=== PATIENT | male | born 1995 | race Caucasian/White ===

== ENCOUNTER 2021-08-09 12:28 | Emergency (ER) | payer BC ==
--- NOTE | 2021-08-09 13:18 | PCM.EKG ---
#1 Interpretation EKG Date: 08/09/21 Time: 12:42 Rhythm: NSR Rate (Beats/Min): 84 [place]: Normal P-Wave: Present QRS: Normal ST-T: Normal QT: Normal Comparison: NA - No Prior EKG EKG Interpretation Comments: Sinus Rhythm with nonspecific T wave inversion
[2021-08-09] MEDS ORDERED: Sodium Chloride 0.9% 10 ML Syringe FLUSH PRN (14:17)
[2021-08-09] MEDS ORDERED: Sodium Chloride 0.9% 2.5 ML Syringe FLUSH PRN (14:17)
--- NOTE | 2021-08-09 15:20 | CR ---
HISTORY: Syncope COMPARISON: None available FINDINGS: A portable erect AP view of the chest was obtained at 14 50 hours. There are mild left greater than right patchy perihilar infiltrates, without vascular engorgement. The findings are suspicious for an atypical pneumonia such as COVID-19. There is no sign of any pleural effusion. The heart is normal in size. The mediastinum is normal in appearance. The osseous structures are normal in appearance for the patient`s age. IMPRESSION: Mild patchy bilateral perihilar infiltrates, left greater than right. Findings suggest an atypical pneumonia such as COVID-19. Dictated by Bruce Walters MD @ 08/09/2021 3:18:27 PM (Electronically Signed)
[2021-08-09 15:59] LABS: BLOOD UREA NITROGEN,BUN 14 mg/dL (7.0-18.0); CARBON DIOXIDE,CO2 30.7 mmol/L (21.0-32.0); CHLORIDE,CL 101 mmol/L (98-107); GLUCOSE RANDOM 118 mg/dL (74-106); POTASSIUM,K 4.5 mmol/L (3.5-5.1); SODIUM,NA 138 mmol/L (136-148)
[2021-08-09] MEDS ORDERED: Lactated Ringers 1,000 ML IV SCH (16:15)
[2021-08-09] MEDS ORDERED: Iopamidol 755 MG/ML 500 ML Multipack Bottle IVPUSH STA (16:48)
--- NOTE | 2021-08-09 17:07 | CT ---
INDICATION: Syncope, COVID positive TECHNIQUE: CT chest pulmonary PE protocol acquired with IV contrast. COMPARISON: None FINDINGS: Cardiovascular structures: Normal vascular enhancement of the pulmonary arteries, no sign of pulmonary embolism. Heart size is normal. No sign of aneurysm in the thoracic aorta. Mediastinum and chinedu: No mass. There are shotty mediastinal lymph nodes. Lungs: Scattered areas of bilateral airspace opacities. Pleura and pericardium: No effusions. Chest wall and axilla: No mass or adenopathy. Upper abdomen: Simple cysts in both kidneys. 9 mm right renal calcification. Bones: No significant findings. IMPRESSION: No pulmonary embolism. Bilateral airspace opacities. The appearance is slightly atypical for COVID, although COVID or bacterial infection remain the leading considerations. Nonobstructive right nephrolithiasis. Please note that all CT scans at this facility use dose modulation, iterative reconstruction, and/or weight-based dosing when appropriate to reduce radiation dose to as low as reasonably achievable. Dictated by Zunilda Hartmann MD @ 08/09/2021 5:05:37 PM (Electronically Signed)
--- NOTE | 2021-08-09 18:47 | EDM.PDOC ---
ED HPI GENERAL MEDICAL PROBLEM - General Chief Complaint: Cardiovascular Problem Stated Complaint: FAINTING AND COV POS Time Seen by Provider: 08/09/21 14:52 - History of Present Illness INITIAL COMMENTS - FREE TEXT/NARRATIVE: CHIEF COMPLAINT(S): Seizure HISTORY OF PRESENT ILLNESS: This is a 26-year-old man with a recent diagnosis of COVID-19 5 days ago who comes to the emergency department with a chief complaint of seizure. The patient states that he has seizure prior to arrival. He states that he was dizzy when he stood up and grabbed something but he states that he felt dizzy. He states that his vision went fuzzy and the next thing he woke up on the floor. He states that he remembers waking up on the ground does not remember anything else. He denies any history of CAD, CHF, COPD, asthma, recent travel, recent surgery, prior history of DVT or PE. He denies any sudden onset at young age and family or early onset CAD. He states that his brother stated that he got stiff in his eye looked strange. He states that he did not bite his tongue, P on himself and was not confused upon awakening. He states that he has had no headache but has not had an appetite and has not been eating as much because of Covid. He denies any chest pain or shortness of breath REVIEW OF SYSTEMS: Constitutional: Denies fever, chills. Eyes: Denies eye pain Ears, Nose, Mouth, & Throat: Denies earache Cardiovascular: Positive for syncopal episode. Denies chest pain Respiratory: Denies shortness of breath Gastrointestinal: Positive for anorexia. Denies Nausea, vomiting, diarrhea, hematochezia. Genitourinary: Denies hematuria Skin:Denies a rash MSK: Denies joint pain Neurological: Denies blurred vision, headache, numbness, tingling, weakness Psychiatric: Denies depression PAST MEDICAL HISTORY: As per history of present illness and as reviewed below otherwise noncontributory. SURGICAL HISTORY: As per history of present illness and as reviewed below otherwise noncontributory. SOCIAL HISTORY: As per history of present illness and as reviewed below otherwise noncontributory. FAMILY HISTORY: As per history of present illness and as reviewed below otherwise noncontributory. EXAMINATION OF ORGAN SYSTEMS/BODY AREAS: Constitutional: Blood pressure 142/74, heart rate 82, respiratory rate 18 with an oxygen saturation of 98% on room air. Temperature 35.4 temporally General: Well-appearing man who is in no acute distress Psychiatric: Appropriate mood and affect. Eyes: No scleral icterus or conjunctival erythema pupils are equal round reactive to light. Extraocular movements intact. No nystagmus noted. ENMT: Moist mucous membranes. No pharyngeal erythema no blood in the oropharynx. No tongue laceration. Cardiovascular: Regular, rate, and rhythm. No gallops, murmurs, or rubs. Bilateral upper extremity pulses symmetric and intact. No peripheral edema. No JVD. Respiratory: Lungs clear to auscultation bilaterally. No wheezes, rales, or rhonchi. Gastrointestinal: Soft, non-tender, non-distended. Normoactive bowel sounds Genitourinary: No suprapubic tenderness Musculoskeletal: Normal range of motion. Skin: No lesions or abrasions. Neurological: AOx4. CN grossly intact. Strength 5/5 in bilateral upper and lower extremity. Sensation is intact bilaterally in upper and lower extremity. Gait appears normal. Finger to nose, heel to powell, rapid alternating movements intact. MEDICAL DECISION MAKING AND COURSE IN THE ED WITH INTERPRETATION/REVIEW OF DIAGNOSTIC STUDIES: This is a 26-year-old male with a recent diagnosis of COVID- 19 who comes to the emergency department with what appears to be an acute syncopal episode who is mildly hypertensive with otherwise normal vital signs. At this time given the history of syncope we did obtain an EKG which was unremarkable. Obtain CBC, CMP, troponin, chest x-ray. In addition given the syncope and recent COVID-19 diagnosis I am also concerned about the possibility of pulmonary embolism. Obtain CT angiogram of the chest. We did place the patient on cardiac monitoring and pulse oximetry with a interpretation of sinus tachycardia and 98% on room air with both good waveforms. Given that the patient has had anorexia and decreased p.o. intake we will provide the patient 1 L of lactated Ringer's bolus. Laboratory: CBC is unremarkable. CMP is unremarkable. Troponin is negative. The radiological images were viewed by myself along with reading the report from the radiologist. Chest x-ray reveals mild patchy bilateral perihilar infiltrates left greater than right. CT angiogram of the chest does not reveal any evidence of pulmonary embolism. There is bilateral airspace opacities. Nonobstructive right nephrolithiasis. After imaging I did discuss results with the patient. I did discuss that at this time he is low risk for ACS. I do believe that he likely had a vasovagal syncopal episode secondary to decreased p.o. intake however I did discuss that I would like him to come back tomorrow to get a Zio patch placed to evaluate for arrhythmia. He was amenable to this plan. I did discuss strict return precautions with the patient. He was amenable discharge and had no further questions. Heart Score History: Moderately Suspicious (1) ECG: Normal (0) Age: <45 (0) Risk Factors: No known risk factors (0) Initial Troponin: </= normal limit (0) Total Score: 1 -> low risk DISPOSITION: The patient was discharged home in stable condition. The patient will follow up with primary care physician in 3 to 5 days CONDITION: Fair PROCEDURES: None FINAL IMPRESSION(S)/DIAGNOSES: 1. Acute syncope likely vasovagal 2. Acute COVID-19 Bairon Abarca M.D. - Related Data Allergies Allergy/AdvReac Type Severity Reaction Status Date / Time No Known Allergies Allergy Verified 08/09/21 12:44 Home Meds: Home Meds . [No Known Home Meds] 08/09/21 [History] Past Medical History - Past Health History Medical/Surgical History: Denies Medical/Surgical History Social & Family History - Family History Family Medical History: No Pertinent Family History - Tobacco Use Tobacco Use Status *Q: Never Tobacco User - Alcohol Use Days Per Week of Alcohol Use: 4 Number of Drinks Per Day: 2 Total Drinks Per Week: 8 - Recreational Drug Use Recreational Drug Use: No ED ROS GENERAL - Review of Systems Review Of Systems: See Below ED EXAM, GENERAL - Physical Exam Exam: See Below Course - Vital Signs Last Recorded V/S: Last Vital Signs Temp 37.3 C 08/09/21 19:02 Pulse 102 H 08/09/21 19:02 Resp 18 08/09/21 19:02 BP 128/76 08/09/21 19:02 Pulse Ox 99 08/09/21 19:02 - Orders/Labs/Meds Labs: Laboratory Tests 08/09/21 08/09/21 08/09/21 Range/Units 15:03 15:03 15:03 WBC 4.31 (4.0-11.0) K/uL RBC 5.45 (4.50-5.90) M/uL Hgb 16.2 (13.0-17.0) g/dL Hct 46.3 (38.0-50.0) % MCV 85.0 (80.0-98.0) fL MCH 29.7 (27.0-32.0) pg MCHC 35.0 (31.0-37.0) g/dL RDW Std Deviation 38.1 (28.0-62.0) fl RDW Coeff of Stephanie 12 (11.0-15.0) % Plt Count 142 L (150-400) K/uL MPV 10.40 (7.40-12.00) fL Neut % (Auto) 76.0 (48.0-80.0) % Lymph % (Auto) 13.9 L (16.0-40.0) % [place] % (Auto) 9.7 (0.0-15.0) % Eos % (Auto) 0.2 (0.0-7.0) % Baso % (Auto) 0.2 (0.0-1.5) % Neut # (Auto) 3.3 (1.4-5.7) K/uL Lymph # (Auto) 0.6 (0.6-2.4) K/uL [place] # (Auto) 0.4 (0.0-0.8) K/uL Eos # (Auto) 0.0 (0.0-0.7) K/uL Baso # (Auto) 0.0 (0.0-0.1) K/uL Nucleated RBC % 0.0 /100WBC Nucleated RBCs # 0 K/uL Sodium 138 (136-148) mmol/L Potassium 4.5 (3.5-5.1) mmol/L Chloride 101 (98-107) mmol/L Carbon Dioxide 30.7 (21.0-32.0) mmol/L BUN 14 (7.0-18.0) mg/dL Creatinine 1.0 (0.8-1.3) mg/dL Est Cr Clr Drug Dosing 114.57 mL/min Estimated GFR (MDRD) > 60.0 ml/min Glucose 118 H (74-106) mg/dL Calcium 8.9 (8.5-10.1) mg/dL Total Bilirubin 0.5 (0.2-1.0) mg/dL AST 29 (15-37) IU/L ALT 33 (14-63) IU/L Alkaline Phosphatase 68 (46-116) U/L Troponin I < 0.050 (0.000-0.056) ng/mL Total Protein 7.6 (6.4-8.2) g/dL Albumin 3.7 (3.4-5.0) g/dL Globulin 3.9 (2.6-4.0) g/dL Albumin/Globulin Ratio 0.9 (0.9-1.6) Meds: Medications Discontinued Medications Generic Name Dose Route Start Last Admin Trade Name Freq PRN Reason Stop Dose Admin Lactated Ringer's 1,000 mls @ 999 mls/hr 08/09/21 16:15 08/09/21 16:43 Ringers, Lactated IV 999 mls/hr ASDIRECTED KAT Administration Iopamidol 100 ml 08/09/21 16:48 08/09/21 16:49 Iopamidol 755 Mg/Ml 500 Ml Multipack Bottle IVPUSH 08/09/21 16:49 100 ml ONETIME STA Administration Sodium Chloride 10 ml 08/09/21 14:17 08/09/21 15:24 Sodium Chloride 0.9% 10 Ml Syringe FLUSH 10 ml ASDIRECTED PRN Administration Keep Vein Open Sodium Chloride 2.5 ml 08/09/21 14:17 08/09/21 15:24 Sodium Chloride 0.9% 2.5 Ml Syringe FLUSH 2.5 ml ASDIRECTED PRN Administration Keep Vein Open Departure - Departure Time of Disposition: 18:45 Disposition: Home, Self-Care 01 Condition: Fair Clinical Impression: Syncope - Discharge Information *PRESCRIPTION DRUG MONITORING PROGRAM REVIEWED*: No *COPY OF PRESCRIPTION DRUG MONITORING REPORT IN PATIENT AALIYAH: No Instructions: 10 Things You Can Do to Manage Your COVID-19 Symptoms at Home - CDC (05/28/2021), COVID-19: How to Protect Yourself and Others - CDC, Syncope, [id number] Referrals: PCP,None [Primary Care Provider] - Forms: ED Department Discharge Additional Instructions: You were evaluated today on an emergent basis. At this time your imaging and labs were all within normal limits. As discussed your CT did show that you had a kidney stone which is not causing any issues in your right kidney. There was no evidence of any clots and you had some cysts on your kidneys. I recommend that you follow-up with your primary care physician in regards to these findings. In addition I would like you to return to the emergency department if you have any additional episodes of chest pain or feel like you are going to pass out. As discussed today you did not have any abnormal cardiac/heart rhythms today. I would like you to come to the front desk clerk tomorrow and ask for respiratory therapy to have a zio patch placed. We faxed over your information to the primary clinic to set up a follow up appointment. [facility] - Primary [facility] [address] [place] [id number] [facility] [address] [place] [id number] The patient is informed of any results of their evaluation and diagnostic workup and all questions are answered. They are given discharge instructions and return precautions. The patient is stable for discharge. The patient states they understand and agree with the plan and that they will return if their symptoms get worse or if they have any new concerns. The following information is given to patients seen in the emergency department who are being discharged to home. This information is to outline your options for follow-up care. We provide all patients seen in our emergency department with a follow-up referral. The need for follow-up, as well as the timing and circumstances, are variable depending upon the specifics of your emergency department visit. If you don't have a primary care physician on staff, we will provide you with a referral. We always advise you to contact your personal physician following an emergency department visit to inform them of the circumstance of the visit and for follow-up with them and/or the need for any referrals to a consulting specialist. The emergency department will also refer you to a specialist when appropriate. This referral assures that you have the opportunity for follow-up care with a specialist. All of these measure are taken in an effort to provide you with optimal care, which includes your follow-up. Under all circumstances we always encourage you to contact your private physician who remains a resource for coordinating your care. When calling for follow-up care, please make the office aware that this follow-up is from your recent emergency room visit. If for any reason you are refused follow-up, please contact the Emergency Department at and asked to speak to the emergency department charge nurse. Sepsis Event Note (ED) - Evaluation Sepsis Screening Result: No Definite Risk
== END 2021-08-09 19:05 | disposition home or self-care (01) ==
LOC: MW.ED 12:28
DX: U07.1 COVID-19 (principal); R55 Syncope and collapse
CPT/HCPCS: 36415; 71045; 71275; 80053; 84484; 85025; 93005; 99285; J7120; Q9967; 99284